=== PATIENT | male | born 1990 | race Hispanic/Latino ===

== ENCOUNTER 2022-05-12 20:06 | Emergency (ER) | payer BC ==
[2022-05-12 21:40] VITALS: BP 134/83
== END 2022-05-12 21:40 | disposition home or self-care (01) | DRG 918 ==
LOC: ED 20:06
DX: T54.91XA Toxic effect of unspecified corrosive substance, accidental (unintentional), initial encounter (principal); Y92.9 Unspecified place or not applicable